=== PATIENT | female | born 1990 | race American Indian/Alaskan Native ===

== ENCOUNTER 2017-02-10 10:20 | Emergency (ER) | payer SELFPAY ==
[2017-02-10 10:30] VITALS: BP 137/97
--- NOTE | 2017-02-10 15:21 | Emergency Department Report ---
Blank Doc - Documentation Documentation: I went looking for the patient in the room to examine her she was not present. I called the patient at the listed phone number. Stated that she had a personal emergency and had to leave the hospital and stated that she would come back later. I advised her to return for assessment at her earliest convenience. Patient stated that she would do so. I informed nurse Isha was working with me in the fast track
== END 2017-02-10 13:21 | disposition left against medical advice (07) ==
LOC: ED 10:20
DX: M54.9 Dorsalgia, unspecified (principal); Z53.21 Procedure and treatment not carried out due to patient leaving prior to being seen by health care provider

== ENCOUNTER 2017-02-21 08:12 | Emergency (ER) | payer SELFPAY ==
[2017-02-21 08:59] VITALS: BP 119/78
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
== END 2017-02-21 12:04 | disposition home or self-care (01) ==
LOC: ED 08:12
DX: I88.9 Nonspecific lymphadenitis, unspecified (principal); M54.5 Low back pain; G89.29 Other chronic pain
CPT/HCPCS: 99282

== ENCOUNTER 2017-08-25 11:48 | Emergency (ER) | payer SELFPAY ==
[2017-08-25] MEDS ORDERED: TYLENOL/CODEINE PO ONE (17:24)
--- NOTE | 2017-08-25 18:05 | XRay Report ---
FINAL REPORT EXAM: XR CHEST ROUTINE 2V HISTORY: cough TECHNIQUE: Two view chest PA and lateral PRIORS: None. FINDINGS: Cardiac and mediastinal contours are unremarkable. No focal pulmonary infiltrate is identified. No pleural fluid collection seen. Pulmonary vasculature is unremarkable. IMPRESSION: Negative two-view chest
[2017-08-25 18:28] LABS: Bacteria,Urine 1+ /HPF (Negative); Bilirubin,Urine NEG (Negative); Blood,Urine NEG (Negative); Color,Urine Yellow (Yellow); Mucus,Urine FEW /HPF; Nitrite,Urine NEG (Negative); Protein,Urine <15 mg/dL mg/dL (Negative); WBC,Urine < 1.0 /HPF (0.0-6.0)
[2017-08-25 18:30] LABS: HCG Qualitative,Urine Negative (Negative)
[2017-08-25] MEDS ORDERED: TORADOL IM ONE (18:42)
[2017-08-25 19:51] VITALS: BP 140/89
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
== END 2017-08-25 21:55 | disposition home or self-care (01) ==
LOC: ED 11:48
DX: B34.9 Viral infection, unspecified (principal); Z87.891 Personal history of nicotine dependence
CPT/HCPCS: 71046; 81001; 81025; 96372; 99284; J1885